=== PATIENT | female | born 1980 | race Caucasian/White ===

== ENCOUNTER 2016-06-29 18:08 | Emergency (ER) | payer MEDICAID ==
[~2016-06-29] VITALS: Ht 160 cm; Wt 66.1 kg
[2016-06-29 18:10] VITALS: Ht 160 cm; Wt 66.1 kg
--- OUTSIDE RECORDS SUMMARY | 2016-06-29 18:13 | XMS REPORT | Continuity of Care Document ---
Author Author [facility] Address Unknown Phone Unavailable Allergies Active Description Code Type Severity Reaction Onset Reported/Identified Relationship to Patient Clinical Status Yes No Known Allergies Drug Allergy Unknown N/A 03/21/2012 Medications Problems Date Dx Coded Attending Type Code Diagnosis Diagnosed By 04/06/2012 Laurie Matthews MD 644.13 THREAT LABOR NEC-ANTEPAR 04/06/2012 Laurie Matthews MD 644.21 EARLY ONSET DELIVERY-DEL 04/06/2012 Laurie Matthews MD 665.01 PRELABOR RUPT UTERUS-DEL 04/06/2012 Laurie Matthews MD V25.2 STERILIZATION 04/06/2012 Laurie Matthews MD V27.0 DELIVER-SINGLE LIVEBORN Procedures Code Description Performed By Performed On 66.39 BILAT TUBAL DESTRUCT NEC Laurie Matthews MD 04/06/2012 74.1 LOW CERVICAL Laurie Matthews MD 04/06/2012 Results Test Result Range CBC - 03/21/12 11:50 MEAN CELL HGB 30.5 pg 27.0-33.0 MEAN CELL HGB CONCENTRATION 34.1 g/dL 32.0-37.0 MEAN CELL VOLUME 89.3 fl 80.0-100.0 RED BLOOD CELL 3.94 m/cumm 4.00-6.00 RED CELL DISTRIBUTION WIDTH 13.2 % 11.0- 15.6 WHITE BLOOD CELL 9.6 k/cumm 5.0-10.0 HEMOGLOBIN 12.0 gm/dL 12.0-16.0 HEMATOCRIT 35.2 % 37.0-47.0 PLATELET COUNT 218 k/cumm 150-400 HEPATIC FUNCTION PANEL - 03/21/12 11:50 BILI UNCONJUGATED 0.2 mg/dL 0.0-0.7 AST/SGOT 19 Units/L 10-37 ALT/SGPT 24 Units/L < 66 TOTAL PROTEIN 7.3 gm/dL 6.4-8.2 ALBUMIN 3.1 gm/dL 3.4-5.0 BILI TOTAL 0.3 mg/dL 0.0-1.0 ALKALINE PHOSPHATASE TOTAL 112 Units/L 50 -136 BILI CONJUGATED < 0.1 mg/dL 0.0-0.3 CBC W/DIFF - 04/06/12 01:05 EOSINOPHIL # 0.2 k/cumm 0.1-0.5 EOSINOPHIL % 2 % 2-4 GRANULOCYTE # 5.5 k/cumm 2.0-9.0 GRANULOCYTE % 62 % 50-75 LYMPHOCYTE # 2.5 k/cumm 1.0-4.0 LYMPHOCYTE % 28 % 20-30 MEAN CELL HGB 29.0 pg 27.0-33.0 MEAN CELL HGB CONCENTRATION 32.4 g/dL 32.0-37.0 MEAN CELL VOLUME 89.7 fl 80.0-100.0 MONOCYTE # 0.7 k/cumm 0.1-1.0 MONOCYTE % 8 % 4-6 RED BLOOD CELL 3.89 m/cumm 4.00-6.00 RED CELL DISTRIBUTION WIDTH 13.2 % 11.0- 15.6 WHITE BLOOD CELL 8.9 k/cumm 5.0-10.0 HEMOGLOBIN 11.3 gm/dL 12.0-16.0 HEMATOCRIT 34.9 % 37.0-47.0 PLATELET COUNT 243 k/cumm 150-400 HEMOGLOBIN - 04/06/12 17:55 MEAN CELL VOLUME 88.5 fl 80.0-100.0 HEMOGLOBIN 10.7 gm/dL 12.0-16.0 HEMOGLOBIN - 04/07/12 06:46 MEAN CELL VOLUME 88.4 fl 80.0-100.0 HEMOGLOBIN 11.1 gm/dL 12.0-16.0 Encounters ACCT No. Visit Date/Time Discharge Status Pt. Type Provider Facility Loc./Unit Complaint [id number] 07/24/2013 14:46:00 2013 23:59:59 CLS Outpatient
--- NOTE | 2016-06-29 18:23 | NUR ---
PROVIDER Davian KNOWLES APRN AT BEDSIDE FOR EXAM.
--- OUTSIDE RECORDS SUMMARY | 2016-06-29 18:24 | XMS REPORT | Continuity of Care Document ---
Author Author [facility] Address Unknown Phone Unavailable Allergies [...] Status Pt. Type Provider Facility Loc./Unit Complaint [id number] 07/24/2013 14:46:00 2013 23:59:59 CLS Outpatient
--- NOTE | 2016-06-29 18:32 | ERPDOC ---
Departure Disposition Decision Date: Jun 29, 2016 Disposition Decision Time: 19:56 (PAULINA KNOWLES APRN) Disposition: 01 DISCHARGED HOME, SELF-CARE Impression Impression (PAULINA KNOWLES APRN) Impression: Primary Impression: Urinary tract infection Urinary tract infection type: acute cystitis Hematuria presence: without hematuria Qualified Codes: N30.00 - Acute cystitis without hematuria Additional Impression: Chest pain Chest pain type: unspecified Qualified Codes: R07.9 - Chest pain, unspecified Severity: Moderate (PAULINA KNOWLES APRN) Condition: Stable Seen By: Mid-level only (PAULINA KNOWLES APRN) Referrals: SONIA CARMONA MD (Family) Patient Instructions: Urinary Tract Infection in Women (ED) Problems/Meds/Labs Reviewed?: Yes Medications reviewed and manag: Yes (PAULINA KNOWLES APRN) Additional Instructions: Drink plenty of fluids at home. Take the Cipro as prescribed for the urinary tract infection. If you have return of the chest pain then take some Tylenol and /or Motrin as needed for pain. Follow up with your primary care provider if you are not improving. Follow up care ordered?: Yes Mental Status: Alert (PAULINA KNOWLES APRN) Scripts Ciprofloxacin HCl (Cipro) 500 Mg Tablet 500 MG PO Q12HR, #10 TAB 0 Refills Prov: PAULINA KNOWLES APRN 06/29/16 HPI - Chest Pain General Chief Complaint: Chest Pain Stated Complaint: HURTS TO BREATHE Time Seen by Provider: 18:13 Source: patient Exam Limitations: no limitations (PAULINA KNOWLES APRN) Time Seen by Provider: 18:13 (RONEY PATRICIA MD) HPI - Chest Pain Initial Comments She has woken up with left sided chest pain this morning. Did call EMS and was taken to [facility] for evaluation. She does state that she was told that her heart monitor shows a "TIA" but once at [facility] no indication of a TIA was found. They did an xray and she was discharged without medications. She did have relief of pain after nitro given once by EMS. She was doing fine and so this evening she was driving to [place] and had onset of the left sided chest pain again. She denies any nausea or SOA with the onset of the pain. Did not take any medications prior to coming to ER. She does not take any control , does not smoke, and no recent surgeries. Her grandfathers both of [place] in the past but the youngest one was in their late 60s. Occurred At: home Onset/Timing: Gradual Duration: 6-12 hrs Activities at Onset/Context: none Location: anterior L Quality: sharp Associated Symptoms: DENIES: abdominal pain, back pain, diaphoresis, dizziness , edema, fast HR, fatigue, fever/chills, headache, heartburn, irregular HR, nausea/vomiting, rash, shortness of breath, slow HR, swelling/lump in chest, syncope, weakness Chest Pain Radiation: no radiation Nitro Today/Relief: 0.4 mg x 1 Aspirin Treatment Today: 81 mg x 4 Prior Chest Pain/Cardiac Sage: no prior chest pain, no prior cardiac workup Hx of Similar Symptoms: No (NOLD,PAULINA N CONSULTANT NURSE) Allergies: Coded Allergies: No Known Allergies (Unverified , 06/29/16) Past History Past Medical History Pt denies signifigant PMH (NOLD,PAULINA N CONSULTANT NURSE) Surgical History Reproductive/: (NOLD,PAULINA N CONSULTANT NURSE) Family History Family History: Negative (NOLD,PAULINA N CONSULTANT NURSE) Social History Smoking Status: Never smoker Substance Use Type: does not use Alcohol Intake: none (NOLD,PAULINA N CONSULTANT NURSE) Review of Systems Constitutional Constitutional: DENIES: chills, dizziness, fatigue, fever, weakness (NOLD, PAULINA N CONSULTANT NURSE) Cardiovascular Cardiac: chest pain, DENIES: dyspnea on exertion, orthopnea Rhythm/Rate: DENIES: irregular beat, palpitations Vascular: DENIES: pedal edema, unilateral swelling (NOLD,PAULINA N CONSULTANT NURSE) Pulmonary Respiratory: DENIES: cough, dyspnea, sputum, tachypnea (NOLD,PAULINA N CONSULTANT NURSE) GI Upper Abdomen: DENIES: nausea, pain, vomiting Lower Abdomen: DENIES: constipation, diarrhea, pain (NOLD,PAULINA N CONSULTANT NURSE) General: DENIES: dysuria, frequency, urgency (NOLD,PAULINA N CONSULTANT NURSE) Integumentary Skin: DENIES: rash (NOLD,PAULINA N CONSULTANT NURSE) Neurological General: DENIES: headache, numbness, tingling, weakness (PAULINA KNOWLES APRN) Physical Exam General General Nourishment: well nourished, well developed, appears stated age, no acute distress, adult General Body Habitus: well groomed (PAULINA KNOWLES APRN) Vitals and Pain First Documented Vital Signs Date Time Temp Pulse Resp B/P Pulse Ox O2 Delivery O2 Flow Rate FiO2 06/29/16 18:10 98.8 80 16 108/62 99 Room Air (RONEY PATRICIA MD) Vitals and Pain Weight: Kilograms: 66.100 Height (feet): 5 Height (inches): 3.00 Triage Pain Scale: (PAULINA KNOWLES APRN) RN VS reviewed by Provider: Yes (PAULINA KNOWLES APRN) Normal Exams: Neck: Full range of motion, without adenopathy, JVD, bruits or thyromegaly Chest/Resp: Clear all perry, with good airflow, and symmetry bilaterally CV: Regular rate and rhythm, without murmur or gallop, Pulses 2+ all extremities, capillary refill, <2 seconds all ext., no pedal edema noted Abdomen: Bowel sounds positive, soft, non-tender, non-distended, no hepatosplenomegaly, masses or bruits noted Lymphatic: No lymphadenopathy, or lymphedema noted Integumentary: No rashes, hives, or bruising noted Neurologic: Patient is alert, and oriented Psychiatric: Patient exhibits, appropriate attention, emotion and affect (PAULINA KNOWLES APRN) Differential Diagnoses Considering: Acute [place], Anxiety/Panic, CHF, Costochondritis, Esophageal Spasm, GERD, Pneumonia, Pulmonary Embolus, Muscle Spasm (PAULINA KNOWLES APRN) Progress Results/Orders Medications Current ED Medications Ketorolac Tromethamine (Toradol) 30 mg O ONCE IV ; Start 06/29/16 at 18:45; Stop 06/29/16 at 18:52; Status DC Ketorolac Tromethamine (Toradol) 60 mg O ONCE IM Last administered on 18:57; Start 06/29/16 at 19:00; Stop 06/29/16 at 19:01; Status DC Ciprofloxacin (Cipro) 500 mg O ONCE PO Last administered on 3/24/17at 20:06; Start 06/29/16 at 20:00; Stop 06/29/16 at 20:01; Status DC (RONEY PATRICIA MD) Progress Progress CBC, BMP, Troponin, and D dimer today are all normal. UA is positive for nitrites and 4+ bacteria, Will go ahead and treat today with some Cipro. Ibuprofen and/or Tylenol as needed for the chest pain. FU with PCP if any other concerns. (PAULINA KNOWLES APRN) Xray Xray : Reason for Exam: chest pain Xray: CXR PA/Lat Interpretation: Normal (PAULINA KNOWLES APRN) PAULINA KNOWLES APRN Jun 29, 2016 18:32 RONEY PATRICIA MD Jul 02, 2016 18:30 Laboratory Tests Test 06/29/16 18:42 06/29/16 19:35 White Blood Count 7.4T/MM3 Red Blood Count 4.35M/MM3 Hemoglobin 13.7GM/DL Hematocrit 40.7% Mean Corpuscular Volume 93.6UM3 Mean Corpuscular Hemoglobin 31.5UUG Mean Corpuscular Hemoglobin Concent 33.7GM/DL RDW Standard Deviation 39.3FL Platelet Count 268T/MM3 Mean Platelet Volume 10.2UM3 Immature Granulocyte % (Auto) 0.1% Neutrophils (%) (Auto) 55.8% Lymphocytes (%) (Auto) 33.3% Monocytes (%) (Auto) 7.0% Eosinophils (%) (Auto) 3.5% Basophils (%) (Auto) 0.3% Absolute Immature Granulocyte (auto 0.01T/MM3 Absolute Neutrophils (auto) 4.1T/MM3 Absolute Lymphocytes (auto) 2.5T/MM3 Absolute Monocytes (auto) 0.5T/MM3 Absolute Eosinophils (auto) 0.3T/MM3 Absolute Basophils (auto) 0.0T/MM3 D-Dimer < 150NG/ML Turbidity < 20 Sodium Level 145MEQ/L Potassium Level 4.1MEQ/L Chloride Level 110MEQ/L Carbon Dioxide Level 27MEQ/L Anion Gap 8MEQ/L Blood Urea Nitrogen 21.0MG/DL Creatinine 0.8MG/DL Glomerular Filtration Rate Calc 81 BUN/Creatinine Ratio 26RATIO Glucose Level 95MG/DL Calculated Osmolality 282MOSM/KG Calcium Level 9.1MG/DL Icterus Index < 2 Troponin I < 0.012ng/ml Chemistry Specimen Hemolysis < 15 Urine Collection Type Cleancatch-midstream Urine Color Yellow Urine Turbidity Sl cloudy Urine pH 7.0 Urine Specific [place] 1.020 Urine Protein Negative Urine Glucose (UA) Negative Urine Ketones Negative Urine Blood Trace-lysed Urine Nitrite Positive Urine Bilirubin Negative Urine Urobilinogen 1.0EU/DL Urine Leukocyte Esterase Trace Urine RBC None seen/HPF Urine WBC 10-20/HPF Urine Bacteria 4+ Urine Culture Indicated Cult reflexed &setup Medications Current ED Medications Ketorolac Tromethamine (Toradol) 30 mg O ONCE IV ; Start 06/29/16 at 18:45; Stop 06/29/16 at 18:52; Status DC Ketorolac Tromethamine (Toradol) 60 mg O ONCE IM Last administered on t 18:57; Start 06/29/16 at 19:00; Stop 06/29/16 at 19:01; Status DC Progress Progress CBC, BMP, Troponin, and D dimer today are all normal. UA is positive for nitrites and 4+ bacteria, Will go ahead and treat today with some Cipro. Ibuprofen and/or Tylenol as needed for the chest pain. FU with PCP if any other concerns. Xray Xray : Reason for Exam: chest pain Xray: CXR PA/Lat Interpretation: Normal PAULINA KNOWLES APRN Jun 29, 2016 18:32
[2016-06-29] MEDS ORDERED: NO ROUTINE MEDS (18:33)
--- NOTE | 2016-06-29 18:34 | NUR ---
XRAY PORTABLE XRAY AT BEDSIDE.
--- NOTE | 2016-06-29 18:39 | NUR ---
LAB AT BEDSIDE FOR BLOOD DRAW.
[2016-06-29] MEDS ORDERED: KETOROLAC 30mg/ml INJECTION IV ONE (18:45)
[2016-06-29 18:47] LABS: BASOPHILS % (AUTO) 0.3 % (0-2); EOSINOPHILS # (AUTO) 0.3 T/MM3 (0-0.5); EOSINOPHILS % (AUTO) 3.5 % (0-4); HCT - HEMATOCRIT 40.7 % (36-46); HGB - HEMOGLOBIN 13.7 GM/DL (12-16); IMMATURE GRANULOCYTE # (AUTO) 0.01 T/MM3 (0.00-0.03); IMMATURE GRANULOCYTE % (AUTO) 0.1 % (0.0-0.5); LYMPHOCYTES # (AUTO) 2.5 T/MM3 (1-4.8); LYMPHOCYTES % (AUTO) 33.3 % (23-45); MEAN CORPUSCULAR HGB 31.5 UUG (26-34); MEAN CORPUSCULAR HGB CONC(MCHC 33.7 GM/DL (31-37); MEAN CORPUSCULAR VOLUME 93.6 UM3 (80-100); MEAN PLATELET VOLUME 10.2 UM3 (9.4-12.4); MONOCYTES # (AUTO) 0.5 T/MM3 (0-0.8); NEUTROPHILS #(AUTO)-ABSOLUTE 4.1 T/MM3 (1.8-7.7); NEUTROPHILS % (AUTO) 55.8 % (33-66); RED BLOOD COUNT 4.35 M/MM3 (4.00-5.20); WBC - WHITE BLOOD COUNT 7.4 T/MM3 (4.5-11.0)
[2016-06-29 18:58] LABS: ANION GAP 8 MEQ/L (5-15); BUN/CREATININE RATIO 26 RATIO (6-26); CALCIUM 9.1 MG/DL (8.4-10.2); CHLORIDE 110 MEQ/L (98-107); CO2 - CARBON DIOXIDE 27 MEQ/L (22-30); CREATININE 0.8 MG/DL (0.7-1.2); GLOMERULAR FILTRATION RATE 81; GLUCOSE 95 MG/DL (65-110); POTASSIUM 4.1 MEQ/L (3.6-5); SODIUM 145 MEQ/L (134-144)
[2016-06-29] MEDS ORDERED: KETOROLAC 60mg/2ml INJECTION IM ONE (19:00)
[2016-06-29 19:23] VITALS: RESP 18
--- NOTE | 2016-06-29 19:35 | NUR ---
STATUS PT APPEARS TO BE RESTING COMFORTABLY IN CART. REPORTS DECREASE IN PAIN TO 3/10 AFTER TORADOL INJECTION. DENIES FURTHER NEEDS AT THIS TIME. CALL LIGHT WITHIN REACH, WILL CONTINUE TO MONITOR.
[2016-06-29 19:40] LABS: BLOOD, URINE TRACE-LYSED (NEGATIVE); COLOR,URINE YELLOW (YELLOW); LEUKOCYTE ESTERASE ,URINE TRACE (NEGATIVE); NITRITE,URINE POSITIVE (NEGATIVE)
[2016-06-29 19:53] LABS: RBC,URINE NONE SEEN /HPF (0-3)
[2016-06-29 19:54] LABS: BACTERIA,URINE 4+ (NEGATIVE)
[2016-06-29] MEDS ORDERED: CIPR-212 PO (19:58)
[2016-06-29] MEDS ORDERED: CIPROFLOXACIN 500 MG TABLET PO ONE (20:00)
[2016-06-29 20:07] VITALS: PULSE 95; TEMP 98.2; O2SAT 99
[2016-06-29 20:08] VITALS: BP 104/66
--- NOTE | 2016-07-01 10:16 | DI ---
Indication: ITS.REASON: Generalized chest pain starting this morning PROCEDURE: CHEST 1 VIEW: Encounter: Initial Comparison: None FINDINGS: The lungs are clear. There is no abnormal airspace opacity, pleural effusion or pneumothorax identified. The heart size, pulmonary vasculature and mediastinum are within normal limits. No significant skeletal abnormality is seen. IMPRESSION: No acute cardiopulmonary abnormality. .
== END 2016-06-29 20:13 | disposition home or self-care (01) ==
LOC: ED 18:08
DX: R07.89 Other chest pain (principal); N30.00 Acute cystitis without hematuria
CPT/HCPCS: 36415; 71010; 80048; 81001; 84484; 85025; 85379; 87086; 87088; 87186; 93005; 96372; 99283; J1885